=== PATIENT | male | born 1960 | race Caucasian/White ===

== ENCOUNTER 2023-03-14 04:22 | Emergency (ER) | payer SELFPAY ==
--- NOTE | 2023-03-14 04:33 | ER ---
Nurse's Notes [facility] Name: Antelmo Fontenot Age: 62 yrs Sex: Male : 1960 Arrival Date: 03/14/2023 Time: 04:22 Bed 18 Private MD: Diagnosis: Muscular cramps, bilateral lower extremity muscle cramps Presentation: 03/14 04:30 Chief complaint: EMS states: called out for possible dehydration. pt car broke down as6 around 2300 yesterday and has been walking around outside. pt appears intoxicated, pt denies drug or ETOH use. pt is refusing IV at this time. Coronavirus screen: At this time, the client does not indicate any symptoms associated with coronavirus-19. Ebola Screen: No symptoms or risks identified at this time. Initial Sepsis Screen: Does the patient meet any 2 criteria? No. Patient's initial sepsis screen is negative. Does the patient have a suspected source of infection? No. Patient's initial sepsis screen is negative. Risk Assessment: Do you want to hurt yourself or someone else? Patient reports no desire to harm self or others. Onset of symptoms was March 14, 2023. 04:30 Method Of Arrival: EMS: [facility] as6 04:30 Acuity: FRANCISCO 3 as6 Triage Assessment: 04:41 General: Appears in no apparent distress. Behavior is cooperative, restless. Pain: as6 Denies pain. EENT: No deficits noted. No signs and/or symptoms were reported regarding the EENT system. Neuro: No deficits noted. Cardiovascular: No deficits noted. Respiratory: No deficits noted. GI: No deficits noted. No signs and/or symptoms were reported involving the gastrointestinal system. : No deficits noted. No signs and/or symptoms were reported regarding the genitourinary system. Derm: Skin is diaphoretic. Historical: - Allergies: 04:35 PENICILLINS; as6 - PMHx: 04:35 Diabetes mellitus; Hypertensive disorder; as6 - PSHx: 04:35 None; as6 - Immunization history:: Adult Immunizations unknown. - Family history:: not pertinent. - Social history:: Smoking status: Patient denies any tobacco usage or history of. Screenin:34 [facility] ED Fall Risk Assessment (Adult) Score/Fall Risk Level 0 - 2 = Low Risk. Abuse as6 screen: Denies threats or abuse. Denies injuries from another. Nutritional screening: No deficits noted. Tuberculosis screening: No symptoms or risk factors identified. Vital Signs: 04:30 BP 164 / 127; Pulse 96; Resp 18 S; Temp 98(O); Pulse Ox 96% on R/A; Weight 113.4 kg as6 (R); Height 6 ft. 0 in. (R); Pain 0/10; 04:40 BP 147 / 95; as6 04:30 Body Mass Index 33.91 (113.40 kg, 182.88 cm) as6 04:30 Pain Scale: Adult as6 ED Course: 04:23 Patient arrived in ED. ranjith 04:24 Eder Benedict, RN is Primary Nurse. as6 04:24 Arm band placed on. as6 04:29 Alvino Waggoner MD is Attending Physician. sp4 04:34 Triage completed. as6 04:35 Bed in low position. Call light in reach. Side rails up X2. as6 04:41 PO fluids given. as6 04:41 No provider procedures requiring assistance completed. Patient did not have IV access as6 during this emergency room visit. Administered Medications: No medications were administered Medication: 04:34 VIS not applicable for this client. as6 Outcome: 04:32 Discharge ordered by . sp4 04:41 Discharged to home ambulatory. as6 04:41 Condition: stable 04:41 Discharge instructions given to patient, Instructed on discharge instructions, follow up and referral plans. Demonstrated understanding of instructions, follow-up care. 04:42 Patient left the ED. as6 Signatures: Tiffanie Alberto RN RN kl Slawson, Ashby, RN RN as Alvino Waggoner MD MD sp4
--- NOTE | 2023-03-14 04:33 | EDPHYS ---
Physician Documentation [facility] Name: Antelmo Fontenot Age: 62 yrs Sex: Male : 1960 Arrival Date: 03/14/2023 Time: 04:22 Bed 18 Private MD: ED Physician Alvino Waggoner HPI: 03/14 04:29 This 62 yrs old Male presents to ER via Unassigned with complaints of sp4 Bilateral leg cramps . 04:29 62-year-old male presents with EMS for bilateral lower extremity cramps. Patient states sp4 his car broke down and he was walking for roughly 30 minutes when he experienced bilateral lower extremity cramps he developed sweating and he has called an ambulance. On arrival to the emergency room patient has declined IV fluids and declined necessary tests. He requested some p.o. water.. Historical: - Allergies: 04:35 PENICILLINS; as6 - PMHx: 04:35 Diabetes mellitus; Hypertensive disorder; as6 - PSHx: 04:35 None; as6 - Immunization history:: Adult Immunizations unknown. - Family history:: not pertinent. - Social history:: Smoking status: Patient denies any tobacco usage or history of. ROS: 04:29 Constitutional: Negative for fever, chills, and weight loss, Eyes: Negative for injury, sp4 pain, redness, and discharge, ENT: Negative for injury, pain, and discharge, Neck: Negative for injury, pain, and swelling, Cardiovascular: Negative for chest pain, palpitations, and edema, Respiratory: Negative for shortness of breath, cough, wheezing, and pleuritic chest pain, Abdomen/GI: Negative for abdominal pain, nausea, vomiting, diarrhea, and constipation, Back: Negative for injury and pain, : Negative for injury, bleeding, discharge, and swelling, MS/Extremity: Negative for injury and deformity, positive for bilateral lower extremity cramps. Skin: Negative for injury, rash, and discoloration, Neuro: Negative for headache, weakness, numbness, tingling, and seizure, Psych: Negative for depression, anxiety, Allergy/Immunology: Negative for hives, rash, and allergies Endocrine: Negative for neck swelling, polydipsia, polyuria, polyphagia, and weight changes Hematologic/Lymphatic: Negative for swollen nodes, abnormal bleeding, and unusual bruising Exam: 04:29 Constitutional: This is a well developed, well nourished patient who is awake, alert, sp4 and in no acute distress. Head/Face: Normocephalic, atraumatic. Eyes: Pupils equal round and reactive to light, extra-ocular motions intact. Lids and lashes normal. Conjunctiva and sclera are not injected. Cornea within normal limits. Periorbital areas with no swelling, redness, or edema. ENT: Nares patent. No nasal discharge, no septal abnormalities noted. Tympanic membranes are normal and external auditory canals are clear. Oropharynx with no redness, swelling, or masses, exudates, or evidence of obstruction, uvula midline. Mucous membranes moist. Neck: Trachea midline, no thyromegaly or masses palpated, and no cervical lymphadenopathy. Supple, full range of motion without nuchal rigidity, or vertebral point tenderness. Chest/axilla: Normal chest wall appearance and motion. Nontender with no deformity. No lesions are appreciated. Cardiovascular: Regular rate and rhythm with a normal S1 and S2. No gallops, murmurs, or rubs. Normal PMI, no JVD. No pulse deficits. Respiratory: Lungs have equal breath sounds bilaterally, clear to auscultation and percussion. No rales, rhonchi or wheezes noted. No increased work of breathing, no retractions or nasal flaring. Abdomen/GI: Soft, non-tender, with normal bowel sounds. No distension or tympany. No guarding or rebound. No evidence of tenderness throughout. Back: No spinal tenderness. No costovertebral tenderness. Skin: Warm, dry with normal turgor. Normal color with no rashes, no lesions, and no evidence of cellulitis. MS/ Extremity: Pulses equal, no cyanosis. Neurovascular intact. Full, normal range of motion. Neuro: Awake and alert, GCS 15, oriented to person, place, time, and situation. Cranial nerves II-XII grossly intact. Motor strength 5/5 in all extremities. Sensory grossly intact. Psych: Awake, alert, with orientation to person, place and time. Behavior, mood, and affect are within normal limits Vital Signs: 04:30 BP 164 / 127; Pulse 96; Resp 18 S; Temp 98(O); Pulse Ox 96% on R/A; Weight 113.4 kg as6 (R); Height 6 ft. 0 in. (R); Pain 0/10; 04:40 BP 147 / 95; as6 04:30 Body Mass Index 33.91 (113.40 kg, 182.88 cm) as6 04:30 Pain Scale: Adult as6 MDM: 04:29 Differential Diagnosis Heat exhaustion, heat stroke, bilateral lower extremity cramps, sp4 dehydration.. Data reviewed: vital signs, nurses notes, EMS record. ED course: Patient at this time declined any intervention. Will discharge patient out of the emergency department her vital signs are stable even though blood pressures on the higher side.. 04:32 Patient medically screened. sp4 Administered Medications: No medications were administered Disposition Summary: 03/14/23 04:32 Discharge Ordered Location: Home sp4 Problem: new sp4 Symptoms: have improved sp4 Condition: Stable sp4 Diagnosis - Muscular cramps, bilateral lower extremity muscle cramps sp4 Followup: sp4 - With: Private Physician - When: 2 - 3 days - Reason: Recheck today's complaints Discharge Instructions: - Discharge Summary Sheet sp4 - Muscle Cramps and Spasms sp4 Forms: - [email or web address] sp4 Signatures: Eder Benedict RN RN as6 Alvino Waggoner MD MD sp4
[2023-03-14 04:49] VITALS: TEMP 98; O2SAT 96
[2023-03-14 04:51] VITALS: BP 147/95
== END 2023-03-14 04:42 | disposition home or self-care (01) ==
LOC: ER 04:22 → EDBD 04:22 → ER 04:42
DX: R25.2 Cramp and spasm (principal); E11.9 Type 2 diabetes mellitus without complications; I10 Essential (primary) hypertension; Z88.0 Allergy status to penicillin